=== PATIENT | male | born 1980 | race African-American/Black ===

== ENCOUNTER 2016-12-11 16:00 | Emergency (ER) | payer MEDICAID ==
[2016-12-11 16:07] VITALS: RESP 16; TEMP 97.7
--- NOTE | 2016-12-11 17:45 | EDPHY ---
H & P Stated Complaint: pt states he is "hearing voices" off bipolar meds - Personal History Current Tetanus/Diphtheria Vaccine: Unsure Current Tetanus Diphtheria and Acellular Pertussis (TDAP): Unsure Tetanus Vaccine Date: 2015 - Medical/Surgical History Hx Asthma: No Hx Chronic Respiratory Disease: No Hx Diabetes: No Hx Cardiac Disease: No Hx Renal Disease: No Hx Cirrhosis: No Hx Alcoholism: No Hx HIV/AIDS: No Hx Splenectomy or Spleen Trauma: No Other PMH: PMH: bipolar. PSHx: rt/left wrist surgery, rt toe surgery - Social History Smoking Status: Current every day smoker Time Seen by Provider: 12/11/16 17:45 Constitutional: Initial Vital Signs Temperature (C) 36.5 C 12/11/16 16:05 Heart Rate 76 12/11/16 16:05 Respiratory Rate 16 12/11/16 16:05 Blood Pressure 113/80 12/11/16 16:05 O2 Sat (%) 98 12/11/16 16:05 O2 Delivery Mode Room Air Allergies/Adverse Reactions: No Known Allergies Allergy (Verified 07/13/16 23:02) Home Medications: Medication Instructions Recorded Benztropine Mesylate [Cogentin (*)] 2 mg PO BID 12/12/16 Gabapentin 600 mg PO TID 12/12/16 LORazepam [Ativan] 1 mg PO TID PRN 12/12/16 Quetiapine Fumarate [Seroquel] 300 BID 12/12/16 cloZAPine [Clozaril (*)] 50 mg PO 12/12/16 cloZAPine [Clozaril (*)] 100 mg PO HS 5 Days 12/12/16 hydrOXYzine HCL [Vistaril] 100 mg PO TID 12/12/16 Medical Decision Making ED Course/Re-evaluation: CHIEF COMPLAINT: Psychiatric evaluation, auditory hallucinations HISTORY OF PRESENT ILLNESS: The patient is a 36 y/o male, with a history of bipolar disorder, arriving voluntarily complaining of auditory hallucinations and requesting mental health evaluation. He denies suicidal or homicidal ideations. No recent alcohol use, illness, or trauma. He denies recent illicit drug use. No other complaints. REVIEW OF SYSTEMS: A 10 point review of systems was performed and is negative with the exception of the elements mentioned in the history of present illness. PHYSICAL EXAM: General Appearance: Alert, well hydrated, appropriate, and non-toxic appearing. Head: Atraumatic without scalp tenderness or obvious injury Eyes: Pupils equal, round, reactive to light and accommodation, EOMI, no trauma , no injection. Nose: Atraumatic, no rhinorrhea, clear. Throat: mucus membranes moist. Neck: Supple, nontender, no lymphadenopathy. Respiratory: No retractions, no distress, no wheezes, and no accessory muscle use. Lungs are clear to auscultation bilaterally. Cardiovascular: Regular rate and rhythm, no murmurs, rubs, or gallops. Good capillary refill all extremities. Gastrointestinal: Abdomen is soft, nontender, non-distended, no masses, no rebound, no guarding, no peritoneal signs. Musculoskeletal: Normal active ROM of all extremities, atraumatic. Neurological: Alert, appropriate, and interactive. Nonfocal neuro exam. Skin: No rashes, good turgor, no nodules on palpation. Past medical history: Bipolar disorder Past surgical history: Denies Family history: noncontributory Social history: Smoker DIFFERENTIAL DIAGNOSIS: The differential diagnosis for the patient's hallucinations included but was not limited to bipolar disorder, schizophrenia, functional and major depression, situational depression, medication side effect , drugs, and alcohol abuse. MEDICAL DECISION MAKING: Patient is in no acute distress and is hemodynamically stable. We are awaiting psychiatric team's evaluation. Patient has known history of psychiatric disorders and is here for evaluation. (Thanh Taylor) Patient has remained stable on my shift. he is awaiting mental health evaluation Care to Dr. Brody at 11:30 p.m. (Femi Kline) Other Provider: Patient accepted to outside facility. They have requested I write for 5 days of Clozaril. (Lul Mcgee) - Data Points Laboratory Results: Laboratory Results 12/11/16 19:26 12/11/16 19:26 12/11/16 19:26 Clozapine Pending Clozapine &Norclozapine Pending Norclozapine Pending Departure - Departure Disposition: Other Psych, Not [facility] Clinical Impression: Altered mental status, Acute psychosis Condition: Good Referrals: NONE *PRIMARY CARE P,. [Primary Care Provider] - As per Instructions Prescriptions: cloZAPine [Clozaril (*)] 100 mg PO HS 5 Days Report Scribed for: Thanh Taylor Report Scribed by: Radha Murillo Date of Report: 12/11/16 Time of Report: 18:06
[2016-12-11 19:34] LABS: % IMMATURE GRANULYOCYTES 0.2 % (0.0-1.1); ABSOLUTE IMMATURE GRANULOCYTES 0.02 10^3/uL (0.00-0.10); ADD DIFF? NO; ADD MORPH? NO; ADD SCAN? NO; ATYPICAL LYMPHOCYTE FLAG 10 (0-99); FRAGMENT RBC FLAG 0 (0-99); HEMOGLOBIN 15.1 g/dL (13.7-17.5); LEFT SHIFT FLG 0 (0-99); LIPEMIA HEMOLYSIS FLAG 90 (0-99); MEAN CELL HEMOGLOBIN CONCENTR. 34.3 g/dL (32.4-36.7); MEAN CELL VOLUME 93.2 fL (81.5-99.8); MEAN PLATELET VOLUME 8.7 fL (8.7-11.7); PLATELET CLUMPS FLAG 0 (0-99); PLATELET COUNT 324 10^3/uL (150-400); RED BLOOD CELL COUNT 4.72 10^6/uL (4.40-6.38); RED CELL DISTRIBUTION WIDTH 12.7 % (11.5-15.2)
[2016-12-11 19:46] LABS: ANION GAP 12 mEq/L (8-16); CARBON DIOXIDE 24 mEq/l (22-31); CHLORIDE 104 mEq/L (97-110); CREATININE 0.8 mg/dL (0.7-1.3); ETHANOL SERUM 14 mg/dL (0-10); GLOMERULAR FILTRATION RATE > 60; GLUCOSE 79 mg/dL (70-100); SALICYLATE < 1.0 mg/dL (2.0-20.0); SODIUM 140 mEq/L (134-144)
[2016-12-12] MEDS ORDERED: cloZAPine 100 MG TAB PO SCH
[2016-12-12] MEDS ORDERED: GABAPENTIN 300 MG CAP PO SCH (09:00)
[2016-12-12] MEDS ORDERED: QUEtiapine FUMARATE 300 MG TAB PO SCH (09:00)
[2016-12-12] MEDS ORDERED: cloZAPine 25 MG TAB PO SCH (09:00)
[2016-12-12] MEDS ORDERED: hydrOXYzine HCL 25 MG TAB PO SCH (14:00)
[2016-12-12 15:02] VITALS: BP 155/93; PULSE 97; O2SAT 99
[2016-12-16 06:47] LABS: CLOZAPINE <25 ng/mL (>350); CLOZAPINE+NORCLOZAPINE Unable to calculate ng/mL (>450); NORCLOZAPINE <25 ng/mL
== END 2016-12-12 14:59 ==
DX: F29 Unspecified psychosis not due to a substance or known physiological condition (principal); R41.82 Altered mental status, unspecified; F17.200 Nicotine dependence, unspecified, uncomplicated
CPT/HCPCS: 80159-90; 80305; G0480

== ENCOUNTER 2016-12-25 01:48 | Emergency (ER) | payer MEDICAID ==
[2016-12-25 02:39] LABS: % IMMATURE GRANULYOCYTES 0.4 % (0.0-1.1); ABSOLUTE IMMATURE GRANULOCYTES 0.04 10^3/uL (0.00-0.10); ADD DIFF? NO; ADD MORPH? NO; ADD SCAN? NO; ATYPICAL LYMPHOCYTE FLAG 0 (0-99); FRAGMENT RBC FLAG 0 (0-99); HEMATOCRIT 45.1 % (40.0-51.0); HEMOGLOBIN 15.2 g/dL (13.7-17.5); LEFT SHIFT FLG 0 (0-99); LIPEMIA HEMOLYSIS FLAG 80 (0-99); MEAN CELL HEMOGLOBIN 31.9 pg (27.9-34.1); MEAN CELL HEMOGLOBIN CONCENTR. 33.7 g/dL (32.4-36.7); MEAN CELL VOLUME 94.5 fL (81.5-99.8); PLATELET CLUMPS FLAG 10 (0-99); PLATELET COUNT 273 10^3/uL (150-400); RED BLOOD CELL COUNT 4.77 10^6/uL (4.40-6.38)
[2016-12-25 02:53] LABS: ALANINE AMINOTRANSFERASE 41 IU/L (21-72); ALBUMIN 4.9 g/dL (3.5-5.0); ALKALINE PHOSPHATASE 47 IU/L (38-126); ANION GAP 12 mEq/L (8-16); ASPARTATE AMINOTRANSFERASE 44 IU/L (17-59); BILIRUBIN,TOTAL 0.8 mg/dL (0.1-1.4); CARBON DIOXIDE 26 mEq/l (22-31); CHLORIDE 103 mEq/L (97-110); ETHANOL SERUM < 10 mg/dL (0-10); GLOMERULAR FILTRATION RATE > 60; GLUCOSE 83 mg/dL (70-100); POTASSIUM 3.7 mEq/L (3.5-5.2); SODIUM 141 mEq/L (134-144); TOTAL PROTEIN 7.7 g/dL (6.3-8.2)
[2016-12-25] MEDS ORDERED: QUEtiapine FUMARATE 300 MG TAB PO ONE (03:30)
[2016-12-25] MEDS ORDERED: BENZTROPINE MESYLATE 2 MG TAB PO ONE (03:32)
--- NOTE | 2016-12-25 03:44 | EDPHY ---
H & P Stated Complaint: hearing voices denies si hi Source: Patient Exam Limitations: No limitations - Personal History Current Tetanus/Diphtheria Vaccine: Yes Current Tetanus Diphtheria and Acellular Pertussis (TDAP): Yes Tetanus Vaccine Date: 2015 - Medical/Surgical History Hx Asthma: No Hx Chronic Respiratory Disease: No Hx Diabetes: No Hx Cardiac Disease: No Hx Renal Disease: No Hx Cirrhosis: No Hx Alcoholism: No Hx HIV/AIDS: No Hx Splenectomy or Spleen Trauma: No Other PMH: PMH: bipolar. PSHx: rt/left wrist surgery, rt toe surgery - Social History Smoking Status: Current every day smoker Time Seen by Provider: 12/25/16 02:20 HPI/ROS: HPI The patient presents with auditory hallucinations which have been present for the last several days. They have been constant and getting progressively worse. He says he has been hearing things and voices are following him. He thinks person may be following him as well. He denies any associated suicidal or homicidal ideation He says he has been off of his psychiatric medication for the last 1 month. He is homeless and sleeping on the street. He took the bus here. He is requesting mental health evaluation. REVIEW OF SYSTEMS Constitutional: No fever, no chills. Eyes: No discharge. ENT: No sore throat. Cardiovascular: No chest pain, no palpitations. Respiratory: No cough, no shortness of breath. Gastrointestinal: No abdominal pain, no vomiting. Genitourinary: No hematuria. Musculoskeletal: No back pain. Skin: No rashes. Neurological: No headache. PMHx: Bipolar disorder, recently admitted to a psychiatric hospital Soc Hx: Homeless, smokes cigarettes PHYSICAL General Appearance: Tired appearing with poor eye contact, speaks in a quiet voice Eyes: Pupils equal and round no pallor or injection ENT, Mouth: Mucous membranes moist Respiratory: There are no retractions, lungs are clear to auscultation Cardiovascular: Regular rate and rhythm Gastrointestinal: Abdomen is soft and non-tender, no masses, bowel sounds normal Neurological: A&O, moves all extremities Skin: Warm and dry, no rashes Musculoskeletal: Neck is supple non tender Extremities: symmetrical, full range of motion Psychiatric: Patient is oriented X 3, there is no agitation (Riguzzi,Sosa) Constitutional: Initial Vital Signs Temperature (C) 36.6 C 12/25/16 02:00 Heart Rate 77 12/25/16 02:00 Respiratory Rate 1 L 12/25/16 02:00 Blood Pressure 119/75 12/25/16 02:00 O2 Sat (%) 97 12/25/16 02:00 O2 Delivery Mode Room Air Allergies/Adverse Reactions: No Known Allergies Allergy (Verified 07/13/16 23:02) Home Medications: Medication Instructions Recorded Benztropine Mesylate [Cogentin (*)] 2 mg PO BID 12/12/16 Gabapentin 600 mg PO TID 12/12/16 Quetiapine Fumarate [Seroquel] 300 BID 12/12/16 cloZAPine [Clozaril (*)] 50 mg PO 12/12/16 cloZAPine [Clozaril (*)] 100 mg PO HS 5 Days 12/12/16 hydrOXYzine HCL [Vistaril] 100 mg PO TID 12/12/16 Medical Decision Making Differential Diagnosis: This is a 36-year-old man with history of bipolar disorder who presents with auditory hallucinations, requesting mental health evaluation. He has been off of his medication and this could have precipitated the symptoms. He denies any SI or HI. Differential diagnosis includes bipolar disorder with psychosis, situational depression, substance abuse, alcohol intoxication. Because the patient self presented and is willing to stay, I will not place him on a mental health hold. I will restart him on his psychiatric medications of Seroquel and Clozaril. I plan to check basic labs and we will have mental health evaluate him later. 7:00 a.m.- The patient has been stable throughout my shift. He is awaiting medical clearance given his urine toxicology positive for amphetamines. The case is signed out to the oncoming provider Dr. Taylor. (Sosa Brody) Other Provider: I assumed care of this patient from Dr. Thanh Taylor at 3:00 p.m.. I spoke with mental health team, EPS, at 4:00 p.m.. The patient is neither suicidal nor homicidal and does not meet criteria for inpatient care at this point in time. He is not on a hold. They are requesting that he be evaluated in the walk-in clinic. The patient is agreeable to this. He is hoping that a supervised facility can be arranged for him, such as [facility], where he has stayed in the past. I am assured that this can be arranged to the walk-in clinic, if deemed appropriate. The patient will be discharged in stable condition from the emergency department to go directly to the mental health walk -in clinic on [address]. (Celine Ca) - Data Points Laboratory Results: Laboratory Results 12/25/16 02:06 12/25/16 02:06 Medications Given: Discontinued Medications Benztropine Mesylate (Cogentin) 2 mg PO BID ONE Stop: 12/25/16 03:33 Last Admin: 12/25/16 04:28 Dose: 2 mg Clozapine (Clozaril) 100 mg PO EDNOW ONE Stop: 12/25/16 04:16 Last Admin: 12/25/16 04:28 Dose: 100 mg Quetiapine Fumarate (Seroquel) 300 mg PO BID ONE Stop: 12/25/16 03:31 Last Admin: 12/25/16 04:28 Dose: 300 mg Departure - Departure Disposition: Home, Routine, Self-Care Clinical Impression: Auditory hallucinations, Amphetamine abuse Bipolar disorder Qualifiers: Active/Remission status: currently active Current bipolar episode type: mixed Current episode severity: unspecified Qualified Code(s): F31.60 - Bipolar disorder, current episode mixed, unspecified Condition: Good Instructions: Bipolar Disorder (ED) Additional Instructions: You will go directly to the mental health clinic on [address] for an evaluation today. Referrals: [facility],. [Clinic] - As per Instructions
[2016-12-25] MEDS ORDERED: cloZAPine 100 MG TAB PO ONE (04:15)
[2016-12-25 15:39] VITALS: TEMP 98.6
[2016-12-25 16:14] VITALS: BP 111/66; PULSE 92; RESP 17; O2SAT 95
== END 2016-12-25 16:14 | disposition home or self-care (01) ==
DX: R44.0 Auditory hallucinations (principal); F15.10 Other stimulant abuse, uncomplicated; F31.60 Bipolar disorder, current episode mixed, unspecified; F17.210 Nicotine dependence, cigarettes, uncomplicated
CPT/HCPCS: 80305; G0480